=== PATIENT | male | born 1985 | race Two or more races ===

== ENCOUNTER 2025-01-12 10:48 | Outpatient (CLI) | payer OTHER ==
[2025-01-12 11:36] LABS: HEMOGLOBIN 15.8 g/dL (13-16.00); MEAN CORPUSCULAR HEMOGLOBIN 30.9 pg (27.00-32.0); MEAN CORPUSCULAR HGB CONC 35.1 g/dl (32.0-36.0); PLATELET COUNT 335 K/uL (150-450); RED BLOOD COUNT 5.11 M/uL (4.00-6.00); RED CELL DISTRIBUTION WIDTH 13.7 % (11.5-14.5)
[2025-01-12 11:43] LABS: PH,URINE 5.5 (5.0-8.0); URINE APPEARANCE Clear; URINE BACTERIA 48.9 uL (0.0-1933); URINE BILIRRUBIN Negative (NEGATIVE); URINE BLOOD Moderate; URINE COLOR Yellow; URINE EPITHELIAL CELLS 18.3 uL (0.0-38.8); URINE GLUCOSE Negative (NEGATIVE); URINE KETONE Negative (NEGATIVE); URINE LEUKOCYTE Small; URINE NITRATE Negative; URINE RBC 251.1 uL (0.0-20.8); URINE WBC 160.7 uL (0.0-23.2)
[2025-01-12 12:08] LABS: INR 1.04; PARTIAL THROMBOPLASTIN TIME 31.4 SECONDS (22.0-34.0); PROTHROMBIN TIME 11.3 SECONDS (9.0-11.5)
[2025-01-12 12:25] LABS: ALBUMIN 3.9 gm/dL (3.4-5.0); BILIRUBIN TOTAL 0.36 mg/dL (0.3-1.2); CALCIUM 9.4 mg/dL (8.5-10.1); CREATININE SERUM 1.12 mg/dL (0.70-1.30); GFR 73.77; GLOBULINA 3.9 G/DL (2.4-3.5); POTASSIUM 3.67 mEq/L (3.5-5.1); TOTAL PROTEIN 7.8 gm/dL (6.4-8.2)
[2025-01-12 12:37] LABS: URINE CAST 0.88 uL (0.0-1.40); URINE PROTEIN 100 (NEGATIVE)
== END 2025-01-12 10:50 | disposition home or self-care (01) ==
LOC: RAD 10:48
PROVIDERS: ATTEND Internal Medicine
DX: E11.9 Type 2 diabetes mellitus without complications (principal); I10 Essential (primary) hypertension; D68.9 Coagulation defect, unspecified; N39.0 Urinary tract infection, site not specified; Z01.818 Encounter for other preprocedural examination